=== PATIENT | male | born 2000 | race Caucasian/White ===

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

== ENCOUNTER 2021-06-24 14:24 | Emergency (ER) | payer OTHER, SELFPAY ==
[2021-06-24 14:31] VITALS: BP 113/89; PULSE 69; RESP 16; TEMP 36.7; O2SAT 100
--- NOTE | 2021-06-24 14:33 | ED.SKABFB ---
HPI - Skin/Abscess/Foreign Bdy General Chief complaint: Skin/Abscess/Foreign Body Stated complaint: ingrown toenail Time Seen by Provider: 06/24/21 14:34 Source: patient and RN notes reviewed Mode of arrival: ambulatory Limitations: no limitations History of Present Illness HPI narrative: 20-year-old male presents with concern for ingrown toenail to the first digit of the right foot. He reports he had an ingrown toenail about a month ago, dealt with it himself however it has come back. Reports he tried cutting it out himself with no success. He reports redness, swelling, pain to the medial edge of the nailbed. MD complaint: other (Toenail problem) Related Data Allergies Allergy/AdvReac Type Severity Reaction Status Date / Time No Known Allergies Allergy Unverified 06/15/21 08:06 Review of Systems Review of Systems: CONSTITUTIONAL: Denies malaise, chills, sweats, or fever. SKIN: Reports redness, swelling, pain to the medial edge of the nailbed of the first digit of the right foot. Reports ingrown nail MUSCULOSKELETAL: Denies musculoskeletal pain or myalgia. NEUROLOGIC: Denies numbness, weakness All systems reviewed & are unremarkable except as noted in HPI and below PMFSH Past Medical History Medical History (Updated 06/24/21 @ 14:40 by Billie Masters NP) Acne Surgical History Surgical History (Updated 06/15/21 @ 08:16 by Arya Flores APRN) History of appendectomy Family History Family History (Updated 06/15/21 @ 08:01 by Maira Moreau CNA) Grandparent Throat cancer Social History Social History (Updated 06/15/21 @ 08:22 by Arya Flores APRN) Smoking status: Never smoker Second hand tobacco smoke exposure: No Alcohol intake: current Alcohol use details: 2 glasses a month of beer Substance use: never Substance use type: does not use Additional occupation/education comments: installs fences Sexual Orientation (if Verbalized by the Patient): Straight or Heterosexual Comments At time of signature, agree with nursing past medical, surgical, social and family history. There is no relevant family history pertinent to the presenting complaint Exam Narrative: GENERAL: Well-appearing, well-nourished, and in no acute distress. HEAD: Normocephalic, atraumatic. EYES: PERRLA, conjunctivae clear ENT: Mucous membranes moist. NECK: Supple. No lymphadenopathy CHEST: Clear to auscultation. No respiratory distress. HEART: Regular rate and rhythm. SKIN: Warm, dry. Redness, swelling, tenderness, open skin noted to the medial aspect of the toenail of the first toe of the right foot NEURO: Alert and oriented x3. PSYCH: Normal mood and affect Course Course Emergency Course: Patient is aware of diagnosis, understands and agrees to treatment plan. Anticipatory guidance given. Patient agrees to follow-up as directed and is aware of reasons to seek care at the emergency department. Portions of this record may have been created with voice recognition software Vital Signs Vital signs: Vital Signs Temperature 98.1 F 06/24/21 14:31 Pulse Rate 69 06/24/21 14:31 Respiratory Rate 16 06/24/21 14:31 Blood Pressure 113/89 06/24/21 14:31 Pulse Oximetry 100 06/24/21 14:31 Temperature 98.1 F 06/24/21 14:31 Pulse Rate 69 06/24/21 14:31 Respiratory Rate 16 06/24/21 14:31 Blood Pressure 113/89 06/24/21 14:31 Pulse Oximetry 100 06/24/21 14:31 Reviewed. MDM - Skin/Abscess/Foreign Bdy MDM Narrative Medical decision making narrative: Exam findings show no acute concerns or changes; patient is non-toxic appearing and is in no distress. Patient is appropriate for outpatient treatment and follow-up. Differential Diagnosis Differential diagnosis: Likely abscess of skin or subcutaneous tissue, cellulitis and other (Paronychia, ingrown toenail, skin infection) Critical Care Time Critical Care Time Critical Care Time: No Discharge Plan Discharge Clinical Im
== END 2021-06-24 14:45 | disposition home or self-care (01) ==
PROVIDERS: Emergency Provider Nurse Practitioner; PCP Internal Medicine
DX: L60.0 Ingrowing nail (principal)
CPT/HCPCS: 99213; G0463